=== PATIENT | female | born 1980 | race Hispanic/Latino ===

== ENCOUNTER 2023-05-03 00:53 | Inpatient (IN) | payer SELFPAY ==
[2023-05-03 01:48] LABS: Bacteria/HPF None Seen HPF (None Seen); Bilirubin 1+ (Negative); Blood, Urine 1+ (Negative); CAUTI Indications for Culture Pelvic or flank pain; Clarity Clear (Clear); Glucose, Urine (Dipstick) Normal (Negative); Ketone, Urine Negative (Negative); Leukocyte 250 Leu/uL (Negative); Nitrite 1+ (Negative); Protein, Urine (Dipstick) 200 mg/dL (Neg-Trace); RBC/HPF Greater than 50 HPF (0-3); Urobilinogen 6 mg/dL (Less than 2); WBC/HPF 21-50 HPF (0-3)
[2023-05-03 01:49] LABS: Pregnancy Test - Urine (BHCG) Negative (Negative); Pregu Control Background? CLEAR/WHITE (CLR/WHITE); Pregu Control Bar Appear? YES (CONTROL BAR)
[2023-05-03 01:50] LABS: Urine Culture Reflex Yes Yes
[2023-05-03 01:52] LABS: Hematocrit 32.7 % (36.0-47.0); Hemoglobin 10.5 g/dL (12.0-16.0); Mean Corpuscular HGB CONC 32.1 g/dL (32.0-36.0); Mean Corpuscular Hemoglobin 23.3 pg (27.0-31.0); Mean Corpuscular Volume 72.7 fl (78.0-98.0); Mean Platelet Volume 9.5 fL (7.4-10.4); Platelet Count 178 10x3/uL (130-400); RBC Distribution Width 24.8 % (11.5-14.5); White Blood Cell (WBC) Count 9.6 10x3/uL (4.8-10.8)
[2023-05-03] MEDS ORDERED: cefTRIAXone (ROCEPHIN) 2 GM VIAL ONE (01:52)
[2023-05-03 01:55] LABS: Delete Auto Diff?? YES; Manual Diff?? YES
[2023-05-03 02:18] LABS: ALT (SGPT) 64 U/L (8-55); AST (SGOT) 53 U/L (5-34); Albumin 3.5 g/dL (3.5-5.0); Alkaline Phosphatase 159 U/L (40-110); Anion Gap 12 mmol/L (10-20); BUN (Urea Nitrogen) 13 mg/dL (7.0-18.7); Calc. Creatinine Clearance 0 mL/min (70-130); Carbon Dioxide 26 mmol/L (22-29); Chloride 99 mmol/L (98-107); Estimated GFR 68; Globulin 4.1 g/dL (2.4-3.5); Glucose 125 mg/dL (70-105); Lipase 4 U/L (8-78); Potassium 3.3 mmol/L (3.5-5.1); Protein, Total 7.6 g/dL (6.0-8.3); Sodium 134 mmol/L (136-145)
[2023-05-03] MEDS ORDERED: Morphine 4 MG/ML VIAL ONE ×2 (02:25→07:20)
[2023-05-03] MEDS ORDERED: Ondansetron PF 4 MG/2 ML Vial ONE (02:25)
[2023-05-03 02:36] LABS: Anisocytosis SLIGHT = 6-15 cells HPF (0-5); Band 20 % (5-11); Burr Cells SLIGHT = 2-5 cells HPF (0-1); Large Platelets 1.7 % (0-5); Lymphocytes 4 % (21-51); Microcytosis SLIGHT = 6-15 cells HPF (0-5); Monocytes 7 % (0-10); Neutrophil 68 % (42-75); Ovalocytes SLIGHT = 2-5 cells HPF (0-1); Platelet Adequacy Comment Platelets Normal; Poikilocytosis SLIGHT = 6-15 cells HPF (0-5); Polychromasia SLIGHT = 2-3 cells HPF (0-2); Total Cell Count 116
[2023-05-03] MEDS ORDERED: Ondansetron ODT 4 MG TAB PO PRN (05:51)
[2023-05-03] MEDS ORDERED: Morphine 4 MG/ML VIAL SLOW IVP PRN (06:01)
[2023-05-03 06:10] VITALS: BMI 22.9
[2023-05-03] MEDS: Lactated Ringer's 1,000 ML IV SCH ×2 (06:16→16:05)
[2023-05-03] MEDS: Potassium Chloride 20 MEQ TAB PO SCH ×2 (06:18→06:45)
[2023-05-03] MEDS ORDERED: Potassium Chloride 20 MEQ TAB ONE (06:20)
[2023-05-03] MEDS ORDERED: Ondansetron ODT 4 MG TAB ONE (07:27)
[2023-05-03] MEDS: Potassium Bicarbonate/Cit Ac 20 MEQ TAB PO SCH (07:37)
[2023-05-03] MEDS ORDERED: Iopamidol-370 76% 500 ML MDV (1 ML CHARGE) ONE (09:30)
[2023-05-03] MEDS ORDERED: Acetaminophen 325 MG TAB PO PRN (10:12)
[2023-05-03] MEDS: HYDROcodone/Acetaminophen 5/325 mg Tablet PO PRN ×2 (13:15→23:51)
[2023-05-03] MEDS: Ondansetron PF 4 MG/2 ML Vial IVP PRN (18:12)
[2023-05-03] MEDS ORDERED: Piperacillin/Tazobactam 3.375 GM in Sodium Chloride 0.9% 100 ML IVPB SCH ×2 (18:15→23:59)
[2023-05-03 18:55] LABS: HBCM Index 0.05 S/CO (0-0.79); HBSAg Index 0.22 S/CO (0-0.99); HIV (1/2) Antibody/Antigen Non-Reactive (NonReactive); HIV 1/2 INDEX 0.12 S/CO (<1.00); Hep A IgM AB Non-Reactive S/CO (NonReactive); Hep B Surf Ag Non-Reactive S/CO (NonReactive); Hep C IgG Ab Non-Reactive S/CO (NonReactive); Hep C Index 0.07 S/CO (0-0.79); Hepatitis B Core IgM Abs Non-Reactive S/CO (NonReactive)
[2023-05-03] MEDS: Piperacillin/Tazobactam 3.375 GM in Sodium Chloride 0.9% 100 ML IVPB SCH (22:32)
[2023-05-04] MEDS ORDERED: cefTRIAXone\\ROCEPHIN 1 GM in Sodium Chloride 0.9% 100 ML IVPB SCH (02:00)
[2023-05-04] MEDS: Lactated Ringer's 1,000 ML IV SCH (02:22)
[2023-05-04] MEDS: Ondansetron PF 4 MG/2 ML Vial IVP PRN ×3 (02:45→23:30)
[2023-05-04] MEDS ORDERED: Fentanyl 100 MCG/2 ML VIAL SLOW IVP PRN (03:52)
[2023-05-04] MEDS: fentaNYL 50 mcg/mL 1 mL Vial SLOW IVP PRN (04:04)
[2023-05-04] MEDS: Piperacillin/Tazobactam 3.375 GM in Sodium Chloride 0.9% 100 ML IVPB SCH ×3 (06:15→23:30)
[2023-05-04 06:48] LABS: ALT (SGPT) 45 U/L (8-55); AST (SGOT) 32 U/L (5-34); Albumin 2.9 g/dL (3.5-5.0); Alkaline Phosphatase 201 U/L (40-110); Anion Gap 11 mmol/L (10-20); BUN (Urea Nitrogen) 9 mg/dL (7.0-18.7); Bilirubin, Total 0.5 mg/dL (0.2-1.2); Calc. Creatinine Clearance 84 mL/min (70-130); Calcium 8.4 mg/dL (7.8-10.44); Carbon Dioxide 20 mmol/L (22-29); Chloride 106 mmol/L (98-107); Estimated GFR 94; Globulin 3.3 g/dL (2.4-3.5); Glucose 107 mg/dL (70-105); Potassium 3.8 mmol/L (3.5-5.1); Protein, Total 6.2 g/dL (6.0-8.3); Sodium 133 mmol/L (136-145)
[2023-05-04] MEDS ORDERED: fentaNYL PF 100 MCG/2 ML SYRINGE ONE (07:46)
[2023-05-04] MEDS ORDERED: Bupivacaine 0.25% HCL 30 ML VIAL ONE (08:01)
[2023-05-04] MEDS ORDERED: EPINEPHrine 1 MG/10 ML Abboject SYRINGE ONE (08:01)
[2023-05-04] MEDS: Potassium Bicarbonate/Cit Ac 20 MEQ TAB PO SCH (08:22)
[2023-05-04] MEDS: Polyethylene Glycol 3350 17 GM Packet PO SCH (08:22)
[2023-05-04] MEDS ORDERED: Lidocaine 1% PF 5 ML VIAL ONE (08:58)
[2023-05-04] MEDS ORDERED: Rocuronium Bromide 10 MG/ML (10ML VIAL) ONE (08:58)
[2023-05-04] MEDS ORDERED: PROPOFOL 200 MG/20 ML VIAL ONE (08:58)
[2023-05-04] MEDS ORDERED: SUGAMMADEX SODIUM 200 MG/2 ML VIAL ONE ×2 (09:05→09:08)
[2023-05-04] MEDS ORDERED: Ondansetron HCl/PF 4 MG/2 ML Vial IVP PRN (09:35)
[2023-05-04] MEDS ORDERED: Promethazine HCl 25 MG/ML VIAL IM PRN (09:35)
[2023-05-04 11:08] LABS: Syphilis Antibody Nonreactive (Nonreactive); Syphilis Antibody Index 0.06 S/CO (<1.00 Non-Reactive)
[2023-05-04] MEDS: HYDROcodone/Acetaminophen 5/325 mg Tablet PO PRN (18:18)
[2023-05-05] MEDS ORDERED: Promethazine HCl 12.5 MG in Sodium Chloride 0.9% 50 ML IVPB PRN (01:04)
[2023-05-05] MEDS: HYDROcodone/Acetaminophen 5/325 mg Tablet PO PRN (01:14)
[2023-05-05] MEDS: Piperacillin/Tazobactam 3.375 GM in Sodium Chloride 0.9% 100 ML IVPB SCH ×2 (06:40→15:14)
[2023-05-05 07:22] LABS: ALT (SGPT) 41 U/L (8-55); AST (SGOT) 28 U/L (5-34); Albumin 3.1 g/dL (3.5-5.0); Alkaline Phosphatase 275 U/L (40-110); Anion Gap 13 mmol/L (10-20); BUN (Urea Nitrogen) 12 mg/dL (7.0-18.7); Bilirubin, Total 0.4 mg/dL (0.2-1.2); Calc. Creatinine Clearance 86 mL/min (70-130); Calcium 8.6 mg/dL (7.8-10.44); Carbon Dioxide 20 mmol/L (22-29); Chloride 105 mmol/L (98-107); Estimated GFR 97; Globulin 3.7 g/dL (2.4-3.5); Glucose 81 mg/dL (70-105); Potassium 3.7 mmol/L (3.5-5.1); Protein, Total 6.8 g/dL (6.0-8.3); Sodium 134 mmol/L (136-145)
[2023-05-05] MEDS: Polyethylene Glycol 3350 17 GM Packet PO SCH (07:29)
[2023-05-05] MEDS: Potassium Bicarbonate/Cit Ac 20 MEQ TAB PO SCH (07:29)
[2023-05-05 08:09] LABS: #Monocytes 0.6 thou/uL (0.11-0.59); #Neutrophils 3.2 thou/uL (1.40-6.50); %Basophils 0.4 % (0.0-1.0); %Eosinophils 0.6 % (0.0-10.0); %Lymphocytes 24.8 % (21.0-51.0); %Monocytes 11.6 % (0.0-10.0); %Neutrophils 61.6 % (42.0-75.0); Hematocrit 29.4 % (36.0-47.0); Hemoglobin 9.2 g/dL (12.0-16.0); Mean Corpuscular HGB CONC 31.3 g/dL (32.0-36.0); Mean Corpuscular Hemoglobin 23.6 pg (27.0-31.0); Mean Corpuscular Volume 75.4 fl (78.0-98.0); Mean Platelet Volume 10.3 fL (7.4-10.4); Platelet Count 220 10x3/uL (130-400); White Blood Cell (WBC) Count 5.2 10x3/uL (4.8-10.8)
[2023-05-05 08:13] LABS: RBC Distribution Width 25.5 % (11.5-14.5)
[2023-05-05] MEDS: Ondansetron PF 4 MG/2 ML Vial IVP PRN (15:14)
[2023-05-05] MEDS: fentaNYL 50 mcg/mL 1 mL Vial SLOW IVP PRN (15:14)
[2023-05-05] MEDS ORDERED: Meropenem 1 GM in Sodium Chloride 0.9% 100 ML IVPB SCH ×2 (16:15→23:59)
[2023-05-05] MEDS: Sulfameth/Trimethoprim DS 800-160mg TAB PO SCH (22:03)
[2023-05-06] MEDS ORDERED: Ondansetron ODT 4 MG TAB PO PRN (06:15)
[2023-05-06] MEDS ORDERED: Acetaminophen 325 MG TAB PO PRN (06:18)
[2023-05-06] MEDS: HYDROcodone/Acetaminophen 5/325 mg Tablet PO PRN (08:51)
[2023-05-06] MEDS: Polyethylene Glycol 3350 17 GM Packet PO SCH (09:14)
[2023-05-06] MEDS: Potassium Bicarbonate/Cit Ac 20 MEQ TAB PO SCH (09:14)
[2023-05-06 10:26] LABS: ALT (SGPT) 37 U/L (8-55); AST (SGOT) 28 U/L (5-34); Albumin 2.9 g/dL (3.5-5.0); Alkaline Phosphatase 335 U/L (40-110); Anion Gap 10 mmol/L (10-20); BUN (Urea Nitrogen) 15 mg/dL (7.0-18.7); Bilirubin, Total 0.4 mg/dL (0.2-1.2); Calc. Creatinine Clearance 84 mL/min (70-130); Calcium 8.6 mg/dL (7.8-10.44); Carbon Dioxide 22 mmol/L (22-29); Chloride 105 mmol/L (98-107); Estimated GFR 94; Globulin 3.6 g/dL (2.4-3.5); Glucose 131 mg/dL (70-105); Protein, Total 6.5 g/dL (6.0-8.3); Sodium 134 mmol/L (136-145)
[2023-05-06] MEDS: Sulfameth/Trimethoprim DS 800-160mg TAB PO SCH ×2 (11:12→22:28)
[2023-05-06] MEDS ORDERED: Ketorolac Tromethamine 30 MG/ML VIAL IVP SCH (17:00)
[2023-05-07] MEDS: Ketorolac Tromethamine 30 MG/ML VIAL IVP SCH ×2 (00:25→06:46)
[2023-05-07 06:57] LABS: ALT (SGPT) 35 U/L (8-55); AST (SGOT) 23 U/L (5-34); Albumin 2.9 g/dL (3.5-5.0); Alkaline Phosphatase 284 U/L (40-110); Anion Gap 10 mmol/L (10-20); BUN (Urea Nitrogen) 12 mg/dL (7.0-18.7); Bilirubin, Total 0.3 mg/dL (0.2-1.2); Calc. Creatinine Clearance 91 mL/min (70-130); Calcium 8.5 mg/dL (7.8-10.44); Carbon Dioxide 23 mmol/L (22-29); Chloride 105 mmol/L (98-107); Estimated GFR 103; Globulin 3.5 g/dL (2.4-3.5); Glucose 83 mg/dL (70-105); Potassium 3.9 mmol/L (3.5-5.1); Protein, Total 6.4 g/dL (6.0-8.3); Sodium 134 mmol/L (136-145)
[2023-05-07] MEDS ORDERED: Ibuprofen 600 MG TAB PO PRN (07:14)
[2023-05-07 08:17] VITALS: TEMP 97.6
[2023-05-07] MEDS: Sulfameth/Trimethoprim DS 800-160mg TAB PO SCH (08:25)
[2023-05-07 08:30] VITALS: BP 113/74
[2023-05-07] MEDS: Polyethylene Glycol 3350 17 GM Packet PO SCH (10:02)
== END 2023-05-07 11:44 | disposition home or self-care (01) | DRG 872 ==
LOC: ERS 00:53 → ERHOLD 05:00 → T4-A 10:40
PROVIDERS: ADMIT Family Medicine; ATTEND Family Medicine
DX: A41.51 Sepsis due to Escherichia coli [E. coli] (principal); N10 Acute pyelonephritis; Z16.24 Resistance to multiple antibiotics; N94.10 Unspecified dyspareunia; E87.6 Hypokalemia; K80.20 Calculus of gallbladder without cholecystitis without obstruction; Z53.8 Procedure and treatment not carried out for other reasons
CPT/HCPCS: 36415; 74177; 76705; 78227; 80053; 80074; 81001; 81025; 83605; 83690; 84145; 85025; 86140; 86780; 86850; 86900; 86901; 87040; 87077; 87086; 87186; 87389; 96361; 96365; 96375; A9537; J0171; J0696; J1885; J2185; J2270; J2405; J2543; J2550; J2704; J3010; J3490; J7120; Q0162; Q9967; S0020

== ENCOUNTER 2024-08-27 20:04 | Emergency (ER) | payer SELFPAY ==
[2024-08-27 22:30] LABS: Bilirubin Negative (Negative); Blood, Urine Negative (Negative); CAUTI Indications for Culture Pelvic or flank pain; Clarity Turbid (Clear); Glucose, Urine (Dipstick) Normal (Negative); Ketone, Urine Negative (Negative); Leukocyte 500 Leu/uL (Negative); Nitrite Negative (Negative); Pregnancy Test - Urine (BHCG) Negative (Negative); Protein, Urine (Dipstick) Negative (Neg-Trace); RBC/HPF 0-3 HPF (0-3); Specific Gravity 1.022 (1.002-1.036); Specific Gravity, Urine 1.022 (1.002-1.036); Urobilinogen Normal mg/dL (Less than 2); WBC/HPF 21-50 HPF (0-3); pH, Urine 7.5 (5.0-9.0)
[2024-08-27 22:31] LABS: Bacteria/HPF 1+ HPF (None Seen); Pregu Control Background? CLEAR/WHITE (CLR/WHITE); Pregu Control Bar Appear? YES (CONTROL BAR)
[2024-08-27 22:33] LABS: Urine Culture Reflex Yes Yes
[2024-08-27] MEDS ORDERED: Ketorolac Tromethamine 30 MG (1 mL) VIAL ONE (22:37)
[2024-08-27] MEDS ORDERED: Lidocaine 1% PF 5 ML VIAL ONE (22:43)
[2024-08-27] MEDS ORDERED: cefTRIAXone (ROCEPHIN) 1 GM VIAL ONE (22:43)
== END 2024-08-27 23:38 | disposition home or self-care (01) ==
LOC: ERS 20:04
DX: N39.0 Urinary tract infection, site not specified (principal); M54.6 Pain in thoracic spine
CPT/HCPCS: 71045; 81001; 81025; 87086; 96372; J0696; J1885